=== PATIENT | female | born 1980 | race American Indian/Alaskan Native ===

== ENCOUNTER 2019-06-07 09:40 | Outpatient (CLI) | payer BC ==
[2019-06-07 10:40] LABS: Alanine Aminotransferase 11 units/L (7-56); Albumin 4.8 g/dL (3.9-5); BUN/Creatinine Ratio 11; Blood Urea Nitrogen 9 mg/dL (7-17); Calcium 8.9 mg/dL (8.4-10.2); Chol/HDL Ratio 2.55 %; HDL Cholesterol 70 mg/dL (40-59); Hemolysis Index 0; LDL Cholesterol,Direct 107 mg/dL (50-130)
[2019-06-07 11:03] LABS: Basophils # (Auto) 0.1 K/mm3 (0.0-0.1); Basophils % (Auto) 1.5 % (0.0-1.8); Eosinophils # (Auto) 0.1 K/mm3 (0.0-0.4); Eosinophils % (Auto) 2.7 % (0.0-4.3); Hematocrit 39.6 % (30.3-42.9); Hemoglobin 12.9 gm/dl (10.1-14.3); Lymphocytes # (Auto) 1.9 K/mm3 (1.2-5.4); Mean Corpuscular HGB Conc 33 % (30-34); Mean Corpuscular Volume 85 fl (79-97); Monocytes # (Auto) 0.4 K/mm3 (0.0-0.8); Monocytes % (Auto) 9.2 % (0.0-7.3); Platelet Count 302 K/mm3 (140-440); Red Blood Count 4.64 M/mm3 (3.65-5.03); Red Cell Distribution Width 13.7 % (13.2-15.2)
[2019-06-07 11:46] LABS: Erythrocyte Sedimentation Rate 5 mm/Hr (0-20)
[2019-06-11 13:46] LABS: Vitamin D, 25-OH, D2 <4 ng/mL
== END 2019-06-07 09:41 | disposition home or self-care (01) ==
LOC: LAB 09:40
PROVIDERS: ATTEND Internal Medicine
DX: Z13.21 Encounter for screening for nutritional disorder (principal); Z13.220 Encounter for screening for lipoid disorders; Z13.29 Encounter for screening for other suspected endocrine disorder; Z00.01 Encounter for general adult medical examination with abnormal findings; M25.519 Pain in unspecified shoulder
CPT/HCPCS: 36415; 80053; 80061; 82306; 82607; 83036; 84443; 85025; 85652; 86140

== ENCOUNTER 2019-08-17 09:32 | Outpatient (CLI) | payer BC ==
--- NOTE | 2019-08-17 15:32 | Magnetic Resonance Report ---
MRI CERVICAL SPINE 08/17/2019 INDICATION / CLINICAL INFORMATION: M54.2 CERVICALGIA. Left upper extremity symptoms COMPARISON: None available. FINDINGS: GENERAL OBSERVATIONS: Unenhanced MR images of the cervical spine were obtained. Slight reversal of cervical lordosis is present with the patient positioned for this exam. Vertebral body alignment is otherwise unremarkable. There is no evidence of spinal cord compression or intrinsic spinal cord abnormality. [id number] ANALYSIS: C7-T1: Unremarkable. C6-7: Minimal diffuse disc bulging. C5-6: Mild diffuse disc bulging. C4-5: Unremarkable. C3-4: Minimal diffuse disc bulging and small central disc protrusion. C2-3: Unremarkable. CRANIO-CERVICAL JUNCTION: Unremarkable. BONE MARROW: No significant abnormality. PARASPINAL SOFT TISSUES: No significant abnormality. IMPRESSION: Minimal degenerative change. No evidence of stenosis or nerve root compression. Signer Name: Aguilar Gonzalez MD Signed: 08/17/2019 3:27 PM Workstation Name: [id number]
== END 2019-08-17 09:33 | disposition home or self-care (01) ==
LOC: MRI 09:32
PROVIDERS: ATTEND Orthopaedic Surgery
DX: M47.892 Other spondylosis, cervical region (principal); M54.2 Cervicalgia
CPT/HCPCS: 72141